=== PATIENT | female | born 1950 | race Caucasian/White ===

== ENCOUNTER → 2016-10-07 | Outpatient (CLI) | payer BC, OTHER ==
--- NOTE | 2016-10-07 14:19 | MA ---
Diagnostic Digital Right Mammography Clinical History: 65-year-old female with no family history of breast cancer noted on a recent screen ing mammogram to have a possible developing right breast asymmetry versus overlap of normal fibroglan dular elements. Technique: Digital true mediolateral and spot compression MLO and craniocaudal views of the right melissa ast are compared with previous studies dated September 16, 2016, September 01, 2015, August 21, 2014, August 20, 2013, September 01, 2012, August 18, 2012, August 17, 2011, August 13, 2010, Augus t 2008. Additionally, this examination was processed by the [employer] computer-aided detection system. Breast Density: Type B. Scattered fibroglandular densities. CAD Evaluation: Negative. Findings: The area of parenchymal asymmetry seen in the upper-outer right breast does not persist wit h spot compression, and appears to have been related to superimposition of normal fibroglandular stru ctures. Impression: Benign mammography. BI-RADS category 2. Recommendation: Routine annual mammographic screening. Counts Include [address] [facility] will send a result letter to the patient. Negative mammography should not preclude additional workup of a clinically suspicious finding. The patient's information is entered into a reminder system with a target due date for her next mammo gram.
== END ==
LOC: CIMAGING 11:50
DX: Z12.31 Encounter for screening mammogram for malignant neoplasm of breast (principal)
CPT/HCPCS: G0206

== ENCOUNTER → 2017-08-12 | Outpatient (CLI) | payer BC, OTHER | LOC: CIMAGING 15:35 | PROVIDERS: ATTEND Internal Medicine | DX: M25.472 Effusion, left ankle (principal); R79.89 Other specified abnormal findings of blood chemistry | CPT/HCPCS: 93971-PO ==

== ENCOUNTER → 2017-09-28 | Outpatient (CLI) | payer BC, OTHER | LOC: CIMAGING 13:30 | PROVIDERS: ATTEND Internal Medicine | DX: Z12.31 Encounter for screening mammogram for malignant neoplasm of breast (principal) | CPT/HCPCS: G0202 ==

== ENCOUNTER → 2018-10-18 | Outpatient (CLI) | payer OTHER, BC | LOC: CIMAGING 13:55 | PROVIDERS: ATTEND Internal Medicine | DX: Z12.31 Encounter for screening mammogram for malignant neoplasm of breast (principal) ==

== ENCOUNTER → 2018-11-09 | Outpatient (CLI) | payer OTHER, BC | LOC: CIMAGING 12:42 | PROVIDERS: ATTEND Internal Medicine | DX: R92.2 Inconclusive mammogram (principal) ==

== ENCOUNTER → 2019-01-17 | Outpatient (CLI) | payer OTHER, BC | LOC: CIMAGING 12:45 | PROVIDERS: ATTEND Internal Medicine | DX: M51.36 Other intervertebral disc degeneration, lumbar region (principal) | CPT/HCPCS: 72100-PO ==